=== PATIENT | male | born 1975 | race Caucasian/White ===

== ENCOUNTER 2018-02-07 21:45 | Emergency (ER) | payer SELFPAY ==
[2018-02-07 21:55] VITALS: RESP 18; TEMP 98.8; O2SAT 95; BMI 33.3
--- NOTE | 2018-02-07 23:14 | ED PDOC ---
Arrival/HPI - General Chief Complaint: ENT Problem Time Seen by Provider: 02/07/18 21:58 Historian: Patient - History of Present Illness Narrative History of Present Illness (Text): 02/07/18 22:00 42 y/o M presenting to the ED complaining of otalgia, fullness and tinnitus in left ear for 1 week, worsening today. Patient denies seeing any PMD for his symptoms. Patient denies any sick contacts, fevers, chills, chest pain, shortness of breath, abdominal pain, nausea, vomiting, diarrhea, back pain, neck pain, urinary symptoms, headache, dizziness, or any other complaint. Time/Duration: 1 week Symptom Onset: Gradual Symptom Course: Unchanged Quality: Aching, Fullness Activities at Onset: Light Context: Home Past Medical History - Provider Review Nursing Documentation Reviewed: Yes - Infectious Disease Hx of Infectious Diseases: None - Past Medical History Past Medical History: No Previous - Cardiac Hx Angina: (chest pain) - Musculoskeletal/Rheumatological Hx Falls: No - Psychiatric Hx Substance Use: No - Past Surgical History Past Surgical History: No Previous - Anesthesia Hx Anesthesia: No - Suicidal Assessment Feels Threatened In Home Enviroment: No Family/Social History - Physician Review Nursing Documentation Reviewed: Yes Family/Social History: No Known Family HX Smoking Status: Never Smoked Hx Alcohol Use: Yes (sometimes) Frequency of alcohol use: Socially Hx Substance Use: No Hx Substance Use Treatment: No Allergies/Home Meds Allergies/Adverse Reactions: Allergies No Known Allergies Allergy (Verified 08/21/14 21:58) Review of Systems - Physician Review All systems were reviewed & negative as marked: Yes - Review of Systems Constitutional: Normal. absent: Fevers, Night Sweats Eyes: Normal ENT: Tinnitus (pt notes ringing in left ear), Other (left ear pain). absent: Normal Respiratory: Normal. absent: SOB, Cough Cardiovascular: Normal. absent: Chest Pain Gastrointestinal: Normal. absent: Abdominal Pain, Diarrhea, Nausea, Vomiting Genitourinary Male: Normal. absent: Urinary Output Changes Musculoskeletal: Normal. absent: Back Pain, Neck Pain Skin: Normal Neurological: Normal. absent: Headache, Dizziness Endocrine: Normal Hemo/Lymphatic: Normal Psychiatric: Normal Physical Exam Vital Signs Reviewed: Yes Vital Signs Temp Pulse Resp BP Pulse Ox 02/07/18 23:26 90 18 131/72 95 02/07/18 21:55 98.8 F 94 H 18 136/78 95 Temperature: Afebrile Blood Pressure: Normal Pulse: Tachycardic Respiratory Rate: Normal Appearance: Positive for: Well-Appearing, Non-Toxic Pain Distress: Mild Mental Status: Positive for: Alert and Oriented X 3 - Systems Exam Head: Present: Atraumatic, Normocephalic Pupils: Present: PERRL Extroacular Muscles: Present: EOMI Conjunctiva: Present: Normal Ears: Present: Erythema (erythema noted in left ear), TM Bulging (left TM bulging, with yellow purulent discharge surrounding left TM Tenderness w/ insertion of otoscope noted. ), Other (Right TM non-bulging, intact & opaque. No hyperemia noted). No: Normal, NORMAL TM, Normal Canal (Edematous ear canal ( left ear) ) Mouth: Present: Moist Mucous Membranes Pharnyx: No: ERYTHEMA, EXUDATE, TONSILS ENLARGED Neck: Present: Normal Range of Motion Respiratory/Chest: Present: Clear to Auscultation, Good Air Exchange. No: Respiratory Distress, Accessory Muscle Use Cardiovascular: Present: Regular Rate and Rhythm, Normal S1, S2. No: Murmurs Abdomen: No: Tenderness, Distention, Peritoneal Signs Back: Present: Normal Inspection Upper Extremity: Present: Normal Inspection. No: Cyanosis, Edema Lower Extremity: Present: Normal Inspection. No: Edema Neurological: Present: GCS=15, CN II-XII Intact, Speech Normal Skin: Present: Warm, Dry, Normal Color. No: Rashes Psychiatric: Present: Alert, Oriented x 3, Normal Insight, Normal Concentration Medical Decision Making ED Course and Treatment: 02/07/18 22:00 Impression: 42 y/o M presenting w/ L sided otalgia Differential Diagnoses Include But Are Not Limited To: Acute Otitis Media Acute Otitis Externa Cholesteatoma Plan: --Assess & disposition Prior Visits: Notes and results from previous visits were reviewed. Progress Notes: 02/07/18 23:15 Patient informed of physical exam findings and will be given a script. Education of medication administration and follow up with PCP provided. Patient demonstrates understanding and will follow up. Script for antibiotics given. Patient stable for discharge. - Scribe Statement The provider has reviewed the documentation as recorded by the Scribe Mima Sorenson All medical record entries made by the Scribe were at my direction and personally dictated by me. I have reviewed the chart and agree that the record accurately reflects my personal performance of the history, physical exam, medical decision making, and the department course for this patient. I have also personally directed, reviewed, and agree with the discharge instructions and disposition. Disposition/Present on Arrival - Present on Arrival Any Indicators Present on Arrival: No History of DVT/PE: No History of Uncontrolled Diabetes: No Urinary Catheter: No History of Decub. Ulcer: No History Surgical Site Infection Following: None - Disposition Have Diagnosis and Disposition been Completed?: Yes Diagnosis: Acute otitis media Disposition: HOME/ ROUTINE Disposition Time: 23:15 Patient Plan: Discharge Condition: STABLE Discharge Instructions (ExitCare): Ear Infections (Otitis Media) (DC) Print Language: GREEK Prescriptions: Amoxicillin/Clavulanate [Augmentin 875 MG-125 MG] 1 tab PO Q12H 10 Days #10 tab Referrals: Jody Reyez MD [Medical Doctor] - Follow up with primary Forms: [employer] (Telugu)
[2018-02-07 23:59] VITALS: BP 131/72; PULSE 90
== END 2018-02-07 23:26 | disposition home or self-care (01) ==
LOC: ED 21:45
DX: H66.90 Otitis media, unspecified, unspecified ear (principal)